=== PATIENT | male | born 1945 | race Caucasian/White ===

== ENCOUNTER 2021-08-07 05:46 | Day surgery (SDC) | payer MEDICARE, OTHER ==
[2021-08-06 12:22] LABS: ALANINE AMINOTRANSFERASE 45 U/L (12-78); ALBUMIN 4.5 G/DL (3.4-5.0); ALBUMIN/GLOBULIN RATIO 1.4 (1.1-1.5); ALKALINE PHOSPHATASE 68 IU/L (46-116); ANION GAP 11 (8-16); ASPARTATE AMINO TRANSFERASE 22 U/L (10-37); BLOOD UREA NITROGEN 21 MG/DL (7-18); BUN/CREATININE RATIO 24.7 (5.4-32.0); CALCIUM 9.4 MG/DL (8.5-10.1); CHLORIDE 101 MMOL/L (99-107); CREATININE 0.85 MG/DL (0.60-1.10); GLUCOSE 88 MG/DL (70-104); HEMOGLOBIN 15.2 g/dl (14.0-17.9); MEAN PLATELET VOLUME 8.7 FL (7.4-10.4); POTASSIUM 3.3 MMOL/L (3.5-5.1); SODIUM 140 MMOL/L (135-145); TOTAL CARBON DIOXIDE 27.8 MMOL/L (24-32); TOTAL PROTEIN 7.7 G/DL (6.4-8.2); eGFR 88 ML/MIN
[2021-08-06 12:24] LABS: HEMATOCRIT 44.8 % (42.0-52.0); MEAN CORPUSCULAR HEMOGLOBIN 35.5 PG (27.0-31.0); MEAN CORPUSCULAR HGB CONC 33.8 g/dL (33.0-36.5); PLATELET COUNT 291 X10'3 (140-440); RED BLOOD COUNT 4.27 X10'6 (4.70-6.10); RED CELL DISTRIBUTION WIDTH 13.2 % (11.5-14.5); WHITE BLOOD COUNT 6.4 X10'3 (4.5-11.0)
[2021-08-06 12:25] LABS: APTT 28 SECONDS (22-32)
[2021-08-06 13:03] LABS: PLATELET ESTIMATE NORMAL; TOTAL CELLS COUNTED 100
[2021-08-07] VITALS (14 sets, daily range): BP systolic 94–150; BP diastolic 52–78
[~2021-08-07] VITALS: Ht 188 cm; Wt 103.3 kg
[~2021-08-07 05:46] MED LIST: ATOR10TA PO; EZET10TA6 PO; HYDR12.5 PO; LEVO88TA2 PO
[2021-08-07] MEDS ORDERED: nitroGLYCERIN 0.4mg SUBLingual tab SL PRN (06:10)
[2021-08-07] MEDS ORDERED: normal saline 1,000 ML IV SCH (06:10)
[2021-08-07] MEDS ORDERED: diphenhydrAMINE 25mg capsule PO PRN (06:10)
[2021-08-07] MEDS ORDERED: LORazepam 0.5 MG tablet PO PRN (06:10)
[2021-08-07] MEDS ORDERED: CHOL10006 PO (06:30)
[2021-08-07] MEDS ORDERED: MULT-1074 PO (06:30)
[2021-08-07] MEDS ORDERED: TRIA1TAB92 PO (06:30)
[2021-08-07] MEDS ORDERED: LIDOCAINE 1% w/preservative (10 MG/ML) inj. 10mL VIAL ONE (08:45)
[2021-08-07] MEDS ORDERED: midazolam 1 mg/ML 2ml injection ONE ×2 (08:45→09:53)
[2021-08-07] MEDS ORDERED: fentaNYL/PF 50MCG/1 ML 2ML syringe ONE (08:45)
[2021-08-07] MEDS ORDERED: iohexol 350MG/ML 100ml bottle IV ONE (08:45)
[2021-08-07] MEDS ORDERED: iohexol 350 MG/ML 50ML vial IV ONE (08:45)
[2021-08-07] MEDS ORDERED: normal saline 1,000 ML IV ONE (10:49)
[2021-08-07] MEDS ORDERED: ondansetron/PF 4mg/2ml inj IV PRN (10:50)
[2021-08-07] MEDS ORDERED: OXAZEpam 15mg capsule PO PRN (10:55)
[2021-08-07] MEDS ORDERED: proCHLORperazine 10 MG/2 ml inj IV PRN (10:55)
[2021-08-07] MEDS ORDERED: HYDROcodone/acetaminophen 5mg/325mg tablet PO PRN (10:55)
[2021-08-07] MEDS ORDERED: HYDROcodone/acetaminophen 10/325mg tab PO PRN (10:55)
[2021-08-07] MEDS ORDERED: potassium Cl 20 mEq SR tablet PO PRN ×2 (11:05)
[2021-08-07] MEDS ORDERED: potassium CL 10mEq/100ml bag 100 ML IV PRN (11:05)
--- NOTE | 2021-08-07 16:15 | NUR ---
Written and Verbal DC instructions given to pt and , verbalize understanding
--- NOTE | 2021-08-07 16:30 | NUR ---
Pt HOB up 45 degrees, groin site stable.
--- NOTE | 2021-08-07 16:40 | NUR ---
Pt sitting up on side of bed, groin site stable, no C/O pain. Amb in hallway gait steady. Amb to rest room void in toilet. Pt returned to sitting on the side of the bed. Pt able to dress self.
--- NOTE | 2021-08-07 16:50 | NUR ---
PIV DC Cath intact, Right groin site stable with no changes to amount of drainage to dressing.
== END 2021-08-07 17:00 | disposition home or self-care (01) ==
LOC: SSTAY O 05:46
PROVIDERS: ATTEND Internal Medicine Cardiovascular Disease
DX: R94.39 Abnormal result of other cardiovascular function study (principal); I25.10 Atherosclerotic heart disease of native coronary artery without angina pectoris; I10 Essential (primary) hypertension; E78.5 Hyperlipidemia, unspecified; G47.33 Obstructive sleep apnea (adult) (pediatric); J44.9 Chronic obstructive pulmonary disease, unspecified; Z98.890 Other specified postprocedural states; Z79.899 Other long term (current) drug therapy; Z87.891 Personal history of nicotine dependence; Z79.01 Long term (current) use of anticoagulants
CPT/HCPCS: 36415; 71046; 80053; 85025; 85610; 85730; 93005; 93458; 99152; C1760; C1769; J1644; J2250; J3010; J7030; Q0163; Q9967; 85007; 99153; A4620; A6258